=== PATIENT | female | born 1995 | race Caucasian/White ===

== ENCOUNTER 2023-04-11 10:45 | Emergency (ER) | payer OTHER ==
[~2023-04-11] VITALS: Ht 172.7 cm; Wt 72.7 kg
[2023-04-11] MEDS ORDERED: LEVE500T20 PO (10:58)
[2023-04-11] MEDS ORDERED: AMLO-257 PO (10:58)
[2023-04-11] MEDS ORDERED: PROP20TA18 PO (10:58)
[2023-04-11 12:29] VITALS: BP 138/91
== END 2023-04-11 12:53 | disposition home or self-care (01) ==
LOC: EMS 10:45
DX: S62.600A Fracture of unspecified phalanx of right index finger, initial encounter for closed fracture (principal); I10 Essential (primary) hypertension; F17.210 Nicotine dependence, cigarettes, uncomplicated; Z91.013 Allergy to seafood; Z88.1 Allergy status to other antibiotic agents; Z91.018 Allergy to other foods; X58.XXXA Exposure to other specified factors, initial encounter; Y93.89 Activity, other specified; Y92.810 Car as the place of occurrence of the external cause; Y99.8 Other external cause status
CPT/HCPCS: 99283

== ENCOUNTER 2023-06-24 19:02 | Inpatient (IN) | payer OTHER ==
[~2023-06-24] VITALS: Ht 172.7 cm; Wt 78.6 kg
[~2023-06-24 19:02] MED LIST: AMLO-257 PO; LEVE500T20 PO; PROP20TA18 PO
[2023-06-24] MEDS ORDERED: LIDOCAINE 1% 10 ML VIAL SQ ONE (22:30)
[2023-06-24] MEDS ORDERED: BACITRACIN 0.9 GM PACKET OINTMENT TP ONE (22:30)
[2023-06-24] MEDS ORDERED: SODIUM CHLORIDE 0.9% 1,000 ML IV ONE (22:30)
[2023-06-24] MEDS ORDERED: PIPERACILLIN/TAZO 3.375 GM/D5W 50 ML IV ONE (22:30)
[2023-06-24 22:47] LABS: BASOPHILS % (AUTO) 0.8 % (0.0-2.0); EOSINOPHILS % (AUTO) 1.6 % (1.0-6.0); HEMOGLOBIN 14.6 g/dL (12.0-16.0); LYMPHOCYTES # (AUTO) 3.2 K/uL (1.0-4.8); LYMPHOCYTES % (AUTO) 40.5 % (22.0-44.0); MEAN CORPUSCULAR HGB CONC 32.5 G/dL (31.0-37.0); MEAN CORPUSCULAR VOLUME 86 fL (80-100); MONOCYTES # (AUTO) 0.7 K/uL (0.1-1.0); MONOCYTES % (AUTO) 9.1 % (2.0-9.0); NEUTROPHILS # (AUTO) 3.8 K/uL (1.8-7.7); PLATELET COUNT (AUTO) 460 K/uL (150-450); RED BLOOD CELL COUNT(AUTO) 5.23 MIL/uL (4.00-5.20); RED CELL DISTRIBUTION WIDTH 14.2 % (11.5-14.5)
[2023-06-24 22:56] LABS: ANION GAP 10 mmol/L (8-16); CALCIUM, TOTAL 8.8 mg/dL (8.8-10.5); CARBON DIOXIDE 23 mmol/L (22-29); CHLORIDE 102 mmol/L (98-107); GLOMERULAR FILTR. RATE CALC > 60 mL/min (>60); GLUCOSE,RANDOM 136 mg/dL (70-110); POTASSIUM 4.3 mmol/L (3.5-5.1); SODIUM SERUM 135 mmol/L (136-145)
[2023-06-24] MEDS ORDERED: ACETAMINOPHEN 325 MG TABLET PO PRN (23:00)
[2023-06-24] MEDS ORDERED: ONDANSETRON HCL 4 MG/2 ML VIAL IVP PRN (23:00)
[2023-06-24] MEDS ORDERED: MAGNESIUM HYDROXIDE SUSPENSION 30 ML UDCUP PO PRN (23:00)
[2023-06-24] MEDS ORDERED: BISACODYL 10 MG RECTAL RECTAL SUPPOSITORY PR PRN (23:00)
[2023-06-24] MEDS ORDERED: PANTOPRAZOLE SODIUM 40 MG DR TABLET PO ONE (23:00)
[2023-06-24] MEDS ORDERED: ALBUTEROL SULFATE 2.5 MG/0.5 ML NEB SOLUTION NEB PRN (23:00)
[2023-06-24] MEDS ORDERED: MORPHINE SULFATE 2 MG/ML SYRINGE IVP PRN (23:00)
[2023-06-24] MEDS ORDERED: ZOLPIDEM TARTRATE 5 MG TABLET PO PRN (23:00)
[2023-06-24] MEDS ORDERED: IPRATROPIUM BROMIDE 0.5 MG/2.5 ML NEB SOLUTION NEB PRN (23:00)
[2023-06-24 23:06] LABS: LACTIC ACID 2.1 mmol/L (0.4-2.0)
[2023-06-24 23:10] LABS: ALANINE AMINOTRANSFERASE 14 U/L (12-78); ALBUMIN 3.8 g/dL (3.4-5.0); ALKALINE PHOSPHATASE 83 U/L (46-116); ASPARTATE AMINOTRANSFERASE 26 U/L (15-37); BILIRUBIN,TOTAL 0.3 mg/dL (0.1-1.0); TOTAL PROTEIN, SERUM 7.6 g/dL (6.4-8.2)
[2023-06-24] MEDS: VANCOMYCIN HCL 1.25 GM in DEXTROSE 5%-WATER 250 ML IV ONE (23:20)
[2023-06-25] MEDS: VANCOMYCIN HCL 1.25 GM in DEXTROSE 5%-WATER 250 ML IV ONE (00:07)
[2023-06-25] MEDS: MIRTAZAPINE 15 MG TABLET PO SCH (02:53)
[2023-06-25 05:12] VITALS: BP 121/74; PULSE 72; RESP 20; TEMP 98
[2023-06-25] MEDS: HYDROCODONE/ACETAMINOPHEN 5-325 MG TABLET PO PRN ×4 (05:25→20:23)
[2023-06-25 08:19] LABS: BASOPHILS % (AUTO) 0.6 % (0.0-2.0); HEMATOCRIT 40.2 % (41-53); HEMOGLOBIN 13.4 g/dL (13.5-17.5); LYMPHOCYTES # (AUTO) 3.5 K/uL (1.0-4.8); LYMPHOCYTES % (AUTO) 52.8 % (22.0-44.0); MEAN CORPUSCULAR HEMOGLOBIN 28.9 pg (26.0-34.0); MEAN CORPUSCULAR HGB CONC 33.4 G/dL (31.0-37.0); MEAN CORPUSCULAR VOLUME 87 fL (80-100); MONOCYTES # (AUTO) 0.6 K/uL (0.1-1.0); MONOCYTES % (AUTO) 8.8 % (2.0-9.0); NEUTROPHILS # (AUTO) 2.3 K/uL (1.8-7.7); NEUTROPHILS % (AUTO) 34.8 % (40.0-70.0); PLATELET COUNT (AUTO) 376 K/uL (150-450); RED BLOOD CELL COUNT(AUTO) 4.64 MIL/uL (4.50-5.90); RED CELL DISTRIBUTION WIDTH 13.9 % (11.5-14.5)
[2023-06-25] MEDS: VANCOMYCIN 1GM/WATER(PEG/NADA) 200 ML IV SCH ×3 (08:58→23:30)
[2023-06-25 08:59] LABS: ALANINE AMINOTRANSFERASE 13 U/L (12-78); ALBUMIN 3.3 g/dL (3.4-5.0); ALKALINE PHOSPHATASE 69 U/L (46-116); ANION GAP 8 mmol/L (8-16); ASPARTATE AMINOTRANSFERASE 15 U/L (15-37); BILIRUBIN,TOTAL 0.4 mg/dL (0.1-1.0); CALCIUM, TOTAL 8.3 mg/dL (8.8-10.5); CARBON DIOXIDE 24 mmol/L (22-29); CHLORIDE 104 mmol/L (98-107); CREATININE 0.93 mg/dL (0.60-1.30); GLOMERULAR FILTR. RATE CALC > 60 mL/min (>60); GLUCOSE,RANDOM 93 mg/dL (70-110); POTASSIUM 4.2 mmol/L (3.5-5.1); SODIUM SERUM 136 mmol/L (136-145); TOTAL PROTEIN, SERUM 6.4 g/dL (6.4-8.2)
[2023-06-25] MEDS ORDERED: SODIUM CHLORIDE 0.9% 500 ML IV ONE (09:00)
[2023-06-25] MEDS: HEPARIN SODIUM,PORCINE 5,000 UNITS/ML VIAL SQ SCH ×4 (09:01→23:58)
[2023-06-25] MEDS: AmLODIPine BESYLATE 5 MG TABLET PO SCH (09:01)
[2023-06-25] MEDS: LevETIRAcetam 500 MG TABLET PO SCH ×2 (09:02→20:13)
[2023-06-25] MEDS: ESTRADIOL 1 MG TABLET PO SCH (09:03)
[2023-06-25] MEDS: BusPIRone HCL 5 MG TABLET PO SCH (09:03)
[2023-06-25] MEDS: SPIRONOLACTONE 50 MG TABLET PO SCH ×2 (09:04→20:13)
[2023-06-25] MEDS: PROPRANOLOL HCL 20 MG TABLET PO SCH (09:04)
[2023-06-25 10:50] VITALS: BP 117/80; PULSE 86; RESP 18
[2023-06-25 10:55] VITALS: PULSE 87; RESP 18; TEMP 98.9
[2023-06-25 19:47] VITALS: BP 107/77; PULSE 74; RESP 19; TEMP 98.1
[2023-06-26] MEDS: HYDROCODONE/ACETAMINOPHEN 5-325 MG TABLET PO PRN ×3 (02:24→19:47)
[2023-06-26 04:30] VITALS: BP 110/60; PULSE 68; RESP 19; TEMP 97.9
[2023-06-26 07:43] LABS: ANION GAP 8 mmol/L (8-16); CALCIUM, TOTAL 8.6 mg/dL (8.8-10.5); CARBON DIOXIDE 25 mmol/L (22-29); CHLORIDE 102 mmol/L (98-107); CREATININE 0.78 mg/dL (0.60-1.30); GLOMERULAR FILTR. RATE CALC > 60 mL/min (>60); GLUCOSE,RANDOM 85 mg/dL (70-110); POTASSIUM 4.2 mmol/L (3.5-5.1); SODIUM SERUM 135 mmol/L (136-145); VANCOMYCIN,RANDOM 16.8 mcg/mL (25.0-50.0)
[2023-06-26] MEDS: ESTRADIOL 1 MG TABLET PO SCH (08:39)
[2023-06-26] MEDS: HEPARIN SODIUM,PORCINE 5,000 UNITS/ML VIAL SQ SCH ×2 (08:41→17:13)
[2023-06-26] MEDS: AmLODIPine BESYLATE 5 MG TABLET PO SCH (08:43)
[2023-06-26] MEDS: LevETIRAcetam 500 MG TABLET PO SCH ×2 (08:43→19:48)
[2023-06-26] MEDS: PROPRANOLOL HCL 20 MG TABLET PO SCH (08:43)
[2023-06-26] MEDS: SPIRONOLACTONE 50 MG TABLET PO SCH ×2 (08:44→19:47)
[2023-06-26] MEDS: BusPIRone HCL 5 MG TABLET PO SCH (08:44)
[2023-06-26 08:52] VITALS: BP 109/64; PULSE 19; RESP 19; TEMP 97.9
[2023-06-26] MEDS: VANCOMYCIN 1GM/WATER(PEG/NADA) 200 ML IV SCH ×2 (08:54→17:13)
[2023-06-26 19:30] VITALS: BP 105/55; PULSE 69; RESP 18; TEMP 98.7
[2023-06-26] MEDS: MIRTAZAPINE 15 MG TABLET PO SCH (19:50)
[2023-06-27] MEDS: VANCOMYCIN 1GM/WATER(PEG/NADA) 200 ML IV SCH ×4 (00:16→23:29)
[2023-06-27] MEDS ORDERED: SODIUM CHLORIDE 0.9% 500 ML IV ONE (00:19)
[2023-06-27] MEDS: HEPARIN SODIUM,PORCINE 5,000 UNITS/ML VIAL SQ SCH ×4 (01:12→23:29)
[2023-06-27 04:31] VITALS: BP 104/51; PULSE 61; RESP 20; TEMP 97.9
[2023-06-27 07:38] LABS: ANION GAP 11 mmol/L (8-16); CALCIUM, TOTAL 8.9 mg/dL (8.8-10.5); CARBON DIOXIDE 26 mmol/L (22-29); CHLORIDE 99 mmol/L (98-107); CREATININE 0.84 mg/dL (0.60-1.30); GLOMERULAR FILTR. RATE CALC > 60 mL/min (>60); GLUCOSE,RANDOM 90 mg/dL (70-110); POTASSIUM 4.3 mmol/L (3.5-5.1); SODIUM SERUM 136 mmol/L (136-145)
[2023-06-27 08:14] VITALS: BP 113/60; PULSE 70; RESP 18; TEMP 97.8
[2023-06-27] MEDS: ESTRADIOL 1 MG TABLET PO SCH (08:58)
[2023-06-27] MEDS: SPIRONOLACTONE 50 MG TABLET PO SCH ×2 (08:59→20:43)
[2023-06-27] MEDS: LevETIRAcetam 500 MG TABLET PO SCH ×2 (09:00→20:43)
[2023-06-27] MEDS: PROPRANOLOL HCL 20 MG TABLET PO SCH (09:00)
[2023-06-27] MEDS: AmLODIPine BESYLATE 5 MG TABLET PO SCH (09:00)
[2023-06-27] MEDS: BusPIRone HCL 5 MG TABLET PO SCH (09:00)
[2023-06-27] MEDS: HYDROCODONE/ACETAMINOPHEN 5-325 MG TABLET PO PRN ×3 (09:03→20:46)
[2023-06-27 16:14] VITALS: BP 114/73; PULSE 78; RESP 20; TEMP 98.9
[2023-06-27 19:32] VITALS: BP 109/70; PULSE 74; RESP 20; TEMP 98.2
[2023-06-27] MEDS: MIRTAZAPINE 15 MG TABLET PO SCH (20:43)
[2023-06-28 04:21] VITALS: BP 104/63; PULSE 63; RESP 19; TEMP 97.9
[2023-06-28 07:38] VITALS: BP 106/61; PULSE 71; RESP 20; TEMP 98.4
[2023-06-28 08:11] LABS: CALCIUM, TOTAL 9.1 mg/dL (8.8-10.5); CARBON DIOXIDE 24 mmol/L (22-29); CHLORIDE 98 mmol/L (98-107); CREATININE 0.76 mg/dL (0.60-1.30); GLOMERULAR FILTR. RATE CALC > 60 mL/min (>60); GLUCOSE,RANDOM 97 mg/dL (70-110); POTASSIUM 4.2 mmol/L (3.5-5.1)
[2023-06-28 08:17] LABS: ANION GAP 15 mmol/L (8-16); SODIUM SERUM 137 mmol/L (136-145)
[2023-06-28] MEDS: AmLODIPine BESYLATE 5 MG TABLET PO SCH (08:36)
[2023-06-28] MEDS: VANCOMYCIN 1GM/WATER(PEG/NADA) 200 ML IV SCH ×2 (08:36→15:22)
[2023-06-28] MEDS: PROPRANOLOL HCL 20 MG TABLET PO SCH (08:36)
[2023-06-28] MEDS: SPIRONOLACTONE 50 MG TABLET PO SCH (08:36)
[2023-06-28] MEDS: LevETIRAcetam 500 MG TABLET PO SCH (08:36)
[2023-06-28] MEDS: HEPARIN SODIUM,PORCINE 5,000 UNITS/ML VIAL SQ SCH ×2 (08:36→15:19)
[2023-06-28] MEDS: ESTRADIOL 1 MG TABLET PO SCH (08:37)
[2023-06-28] MEDS: BusPIRone HCL 5 MG TABLET PO SCH (08:37)
[2023-06-28] MEDS: HYDROCODONE/ACETAMINOPHEN 5-325 MG TABLET PO PRN (08:45)
[2023-06-28 15:40] VITALS: BP 110/64; PULSE 74; RESP 20; TEMP 97.8
[2023-06-28] MEDS ORDERED: BUSP5TAB20 PO (17:45)
[2023-06-28] MEDS ORDERED: ESTR-95 PO (17:47)
[2023-06-28] MEDS ORDERED: MIRT-89 PO (17:48)
[2023-06-28] MEDS ORDERED: SPIR50TA27 PO (17:48)
== END 2023-06-28 20:11 | DRG 563 ==
LOC: EMS 19:03 → EDSEX 19:03 → 6S 06-25 03:00
PROVIDERS: ADMIT Hospitalist; ATTEND Hospitalist
PROC: 0Y9D0ZZ Drainage of Left Upper Leg, Open Approach (ICD-10-PCS; principal; 2023-06-25)
DX: S62.620A Displaced fracture of middle phalanx of right index finger, initial encounter for closed fracture (principal); L02.416 Cutaneous abscess of left lower limb; I10 Essential (primary) hypertension; R56.9 Unspecified convulsions; M54.9 Dorsalgia, unspecified; X58.XXXA Exposure to other specified factors, initial encounter; R00.0 Tachycardia, unspecified; F17.210 Nicotine dependence, cigarettes, uncomplicated; Z88.1 Allergy status to other antibiotic agents; Z91.013 Allergy to seafood; Z91.018 Allergy to other foods; Z79.899 Other long term (current) drug therapy; Z91.148 Patient's other noncompliance with medication regimen for other reason; Y93.89 Activity, other specified; Y92.89 Other specified places as the place of occurrence of the external cause; Y99.8 Other external cause status
CPT/HCPCS: 80048; 80053; 80202; 83605; 85025; 87070; 87205; 99285; J1644; J2270; J2405; J2543; J3370; J3490; J7030; J7040; J7060; Q9967

== ENCOUNTER 2023-07-24 12:24 | Emergency (ER) | payer OTHER ==
[~2023-07-24] VITALS: Ht 170.2 cm; Wt 68.2 kg
[~2023-07-24 12:24] MED LIST changes: +BUSP5TAB20 PO; +ESTR-95 PO; +MIRT-89 PO; +SPIR50TA27 PO
[2023-07-24] MEDS ORDERED: IBUP-2492 PO (16:18)
[2023-07-24] MEDS ORDERED: SULFATRIM PO (16:18)
[2023-07-24] MEDS ORDERED: IBUP-1493 PO (16:19)
[2023-07-24] MEDS ORDERED: LIDOCAINE 1% 10 ML VIAL ID ONE (17:15)
[2023-07-24] MEDS ORDERED: IBUPROFEN 400 MG TABLET PO ONE (17:15)
[2023-07-24 19:02] VITALS: BP 102/56; PULSE 76; RESP 18; TEMP 98.4
== END 2023-07-24 19:23 ==
LOC: EMS 12:36
DX: L02.416 Cutaneous abscess of left lower limb (principal); I10 Essential (primary) hypertension; F17.210 Nicotine dependence, cigarettes, uncomplicated; F11.90 Opioid use, unspecified, uncomplicated; Z91.013 Allergy to seafood; Z91.018 Allergy to other foods; Z88.8 Allergy status to other drugs, medicaments and biological substances
CPT/HCPCS: 99283; 10060; 87205; 87070; J3490

== ENCOUNTER 2024-05-30 10:08 | Emergency (ER) | payer OTHER ==
[~2024-05-30] VITALS: Ht 175.3 cm; Wt 86.0 kg
[~2024-05-30 10:08] MED LIST changes: +IBUP-1493 PO; +LEVE-71 PO; -LEVE500T20 PO; +SULFATRIM PO
[2024-05-30 10:20] VITALS: BP 136/79; PULSE 83; RESP 17; TEMP 98.6
[2024-05-30] MEDS: ACETAMINOPHEN 500 MG TABLET PO ONE ×2 (10:36→10:37)
[2024-05-30] MEDS: PERTUSS(ACELL),DIPH,TET/PF 0.5 ML SYRINGE [ADULT] IM. ONE (10:37)
== END 2024-05-30 12:12 | disposition home or self-care (01) ==
LOC: EMS 10:08
DX: S01.511A Laceration without foreign body of lip, initial encounter (principal); S63.501A Unspecified sprain of right wrist, initial encounter; F17.210 Nicotine dependence, cigarettes, uncomplicated; I10 Essential (primary) hypertension; Z88.1 Allergy status to other antibiotic agents; Z91.013 Allergy to seafood; Z91.048 Other nonmedicinal substance allergy status; Y04.0XXA Assault by unarmed brawl or fight, initial encounter; Y93.89 Activity, other specified; Y92.89 Other specified places as the place of occurrence of the external cause; Y99.8 Other external cause status
CPT/HCPCS: 12011; 90471; 90715; 99284